=== PATIENT | female | born 1965 | race Caucasian/White ===

== ENCOUNTER 2018-09-23 21:06 | Emergency (ER) | payer SELFPAY ==
[2018-09-23 21:11] VITALS: BMI 22.7
[2018-09-23] MEDS ORDERED: ABILIFY PO (21:12)
[2018-09-23] MEDS ORDERED: ZOLOFT PO (21:12)
[2018-09-23] MEDS ORDERED: SERT (21:12)
[2018-09-23] MEDS ORDERED: DEPAKOTE (21:12)
[2018-09-23] MEDS ORDERED: SERTRALINE (21:13)
[2018-09-23 21:27] LABS: BASOPHILS 0.3 % (0-2); EOSINOPHILS 1.2 % (0-7); HEMATOCRIT 41.8 % (36.0-48.0); HEMOGLOBIN 14.4 g/dL (12-16); IMMATURE GRANULOCYTES 0.2 % (0-5); MCH 30.8 pg (26.0-34.0); MCHC 34.4 g/dL (31.0-37.0); MCV 89.3 fL (80.0-100.0); MEAN PLATELET VOLUME 9.5 fL (7.4-10.4); MONOCYTES 4.3 % (2-11); PLATELET COUNT 403 10x3/uL (130-400); RBC 4.68 10x6/uL (4.00-5.40); RDW 13.8 % (11.5-14.5); WBC 9.6 10x3/uL (4.8-10.8)
[2018-09-23 21:29] LABS: APPEARANCE CLEAR (CLEAR); BILIRUBIN NEGATIVE (NEGATIVE); COLOR YELLOW (YELLOW); GLUCOSE NEGATIVE (NEGATIVE); KETONE NEGATIVE (NEGATIVE); NITRITE NEGATIVE (NEGATIVE); PROTEIN TRACE mg/dL (NEGATIVE); UROBILINOGEN NORMAL (NORMAL)
[2018-09-23 21:31] LABS: BACTERIA MODERATE /hpf (NONE SEEN); RED CELLS - URINE 0-5 /hpf (0-5); WHITE CELLS - URINE 0-5 /hpf (0-5)
[2018-09-23 21:39] LABS: UDS - AMPHET NEGATIVE QUAL (NEGATIVE); UDS - BARB NEGATIVE QUAL (NEGATIVE); UDS - BENZO NEGATIVE QUAL (NEGATIVE); UDS - COCAINE NEGATIVE QUAL (NEGATIVE); UDS - OPIATE NEGATIVE QUAL (NEGATIVE); UDS - PCP NEGATIVE QUAL (NEGATIVE); UDS - THC POSITIVE QUAL (NEGATIVE)
[2018-09-23 21:52] LABS: ALKALINE PHOSPHATASE 120 U/L (46-116); ALT (SGPT) 26 U/L (10-68); BILIRUBIN - TOTAL 0.27 mg/dL (0.2-1.3); CALC OSMOLALITY 282 mosm/kg (275-300); CALCIUM 9.1 mg/dL (8.5-10.1); CARBON DIOXIDE 25.2 mmol/L (21.0-32.0); CHLORIDE - SERUM 102 mmol/L (98-107); CREATININE - SERUM 0.9 mg/dL (0.6-1.3); GLUCOSE 115 mg/dL (74-106); POTASSIUM - SERUM 3.5 mmol/L (3.5-5.1); PROTEIN - SERUM 8.2 g/dL (6.4-8.2); SODIUM 142 mmol/L (136-145); UREA NITROGEN 10 mg/dL (7-18); eGFR NON AFRICAN AMERICAN 70 mL/min (90-120)
[2018-09-23 21:56] LABS: VALPROIC ACID (DEPAKOTE) < 50.0 ug/mL (50.0-100.0)
--- NOTE | 2018-09-23 22:41 | NUR ---
PATIENT CAME TO [facility] VIA AMBULANCE, PATIENT IS SUICIDAL AND HER PLAN IS TO CUT HERSELF WITH A KNIFE. PATIENT IS A LITTLE TEARFUL, SHE IS AWAKE, ALERT, A SAFETY PLAN WAS DONE WITH HER, SUICIDE PREVENTION RESOURCES PAPER WAS GIVEN TO HER, PATIENT OBSERVATION WAS STARTED, SUICIDE ENVIRONMENT CHECK LIST WAS COMPLETED, THE ROOM IS FREE OF ANY HARMFUL OBJECTS. A SITTER IS BEING PROVIDED. PATIENT HAS USED METHAMPHETAMINES IN THE PAST BUT NOT FOR THE PAST 6-8 MONTHS AND PATIENT IS NEGATIVE FOR METHAMPHETAMINES AT THIS TIME. SHE HAS 3 DAUGHTERS AND THIS NURSE IS TALKING TO HER ABOUT ALL OF THE POSITIVE THINGS IN HER LIFE AND HER FACE "LIGHTS UP" WHEN SHE TALKS ABOUT HER DAUGHTERS AND SHE HAS A GRANDBABY ON THE WAY. RECEIVED PATIENT'S SIGNATURE ON THE SAFETY PLAN AND SHE LISTED AA AND NA HER SOCIAL SUPPORT.
[2018-09-23 23:39] VITALS: BP 131/84
== END 2018-09-24 00:07 ==
LOC: D.ER 21:06
PROVIDERS: Family Medicine
DX: R45.851 Suicidal ideations (principal); F32.9 Major depressive disorder, single episode, unspecified; F19.10 Other psychoactive substance abuse, uncomplicated